=== PATIENT | male | born 1960 | race African-American/Black ===

== ENCOUNTER 2020-11-29 09:59 | Emergency (ER) | payer OTHER, SELFPAY ==
[~2020-11-29] VITALS: Ht 182.9 cm; Wt 99.8 kg
[2020-11-29 10:10] VITALS: BP_SYST 127
[2020-11-29] MEDS ORDERED: predniSONE 20 MG TABLET PO ONE (12:00)
[2020-11-29] MEDS ORDERED: IPRATROPIUM/ALBUTEROL SULFATE 3 ML AMPUL.NEB (DUONEB) INH ONE (12:15)
[2020-11-29] MEDS ORDERED: ALBUTEROL SULFATE 0.083% 2.5 MG/3 ML VIAL.NEB INH ONE ×2 (12:15→14:45)
[2020-11-29] MEDS ORDERED: ALBU8.5H8 INH (14:52)
[2020-11-29] MEDS ORDERED: PRED20TA PO (14:52)
[2020-11-29] MEDS ORDERED: AZIT-62 PO (14:52)
[2020-11-29 15:12] VITALS: BP_SYST 127
== END 2020-11-29 15:12 | disposition home or self-care (01) ==
LOC: SED 09:59
DX: J18.0 Bronchopneumonia, unspecified organism (principal); J20.9 Acute bronchitis, unspecified; Z79.899 Other long term (current) drug therapy
CPT/HCPCS: 71045; 93005; 94640; 99284; J7512; J7613

== ENCOUNTER 2020-12-19 01:35 | Emergency (ER) | payer OTHER, SELFPAY ==
[~2020-12-19] VITALS: Ht 182.9 cm; Wt 98.4 kg
[~2020-12-19 01:35] MED LIST: ALBU8.5H8 INH; AZIT-62 PO; PRED20TA PO
--- NOTE | 2020-12-19 01:46 | NUR ---
Placed in room 8 . Placed on air sampling and monitoring, blood pressure machine and pulse oximeter. To gown for exam. Side rails up.
[2020-12-19 01:48] VITALS: BP_SYST 159
--- NOTE | 2020-12-19 01:51 | NUR ---
Pt came into ER with complaint of non productive dry cough [id number]. Pt reports pain with cough 5/10. Denies sore throat and denies chest pain. Pt reports SOB. Pt is AAOX4 speaking full sentences non febrile VSS resting in gurney attached to monitor. Lung sounds slight expiratory wheezing bilaterally. Breathing is even and unlabored.
--- NOTE | 2020-12-19 01:57 | NUR ---
ER at bedside examining patient.
--- NOTE | 2020-12-19 02:10 | NUR ---
Covid swab collected and sent to lab.
--- NOTE | 2020-12-19 02:10 | NUR ---
X-ray at bedside.
--- NOTE | 2020-12-19 03:14 | NUR ---
Blood collected and sent to lab.
--- NOTE | 2020-12-19 03:14 | NUR ---
# 20 gauge angiocath placed to LAC. Use of asceptic technique. Opsite placed over site. Blood return noted. Blood for lab drawn from site. Flushed with 10 cc of normal saline. No evidence of infiltration noted. Patient tolerated well.
[2020-12-19] MEDS ORDERED: MAGNESIUM SULFATE 50 ML IV ONE (03:15)
[2020-12-19] MEDS ORDERED: MAGNESIUM SULFATE 1 GM/2 ML VIAL IVP ONE (03:15)
[2020-12-19] MEDS ORDERED: DEXAMETHASONE SOD PHOSPHATE 10 MG/ML VIAL IVP ONE (03:15)
--- NOTE | 2020-12-19 03:30 | NUR ---
Care endorsed to Stu ROUSE.
[2020-12-19 03:46] LABS: BASOPHILS % (AUTO) 0.5 % (0.0-2.0); EOSINOPHILS # (AUTO) 1.2 K/uL (0.0-0.4); HEMATOCRIT 39.4 % (36-54); HEMOGLOBIN 12.9 g/dL (14.0-18.0); LYMPHOCYTES % (AUTO) 25.9 % (20.5-51.5); MEAN CORPUSCULAR HEMOGLOBIN 27 pg (27-31); MEAN CORPUSCULAR HGB CONC 33 % (32-36); MEAN CORPUSCULAR VOLUME 83 fL (79.0-98.0); MONOCYTES # (AUTO) 0.5 K/uL (0.0-1.0); MONOCYTES % (AUTO) 6.3 % (1.7-9.3); NEUTROPHILS # (AUTO) 3.9 K/uL (1.8-7.7); NEUTROPHILS % (AUTO) 51.3 % (40.0-70.0); PLATELET COUNT (AUTO) 264 K/uL (130-430); RED BLOOD CELL COUNT(AUTO) 4.76 MIL/uL (4.2-6.2); RED CELL DISTRIBUTION WIDTH 14.9 % (9.0-15.0); WHITE BLOOD COUNT (AUTO) 7.6 K/uL (4.8-10.8)
[2020-12-19 03:57] LABS: CALCIUM 8.5 mg/dL (8.4-11.0); CREATININE 0.99 mg/dL (0.55-1.30); POTASSIUM 3.7 mmol/L (3.5-5.1)
[2020-12-19] MEDS ORDERED: PRED20TA PO (04:44)
[2020-12-19] MEDS ORDERED: LORA10TA7 PO (04:44)
[2020-12-19] MEDS ORDERED: PROM5SYR PO (04:44)
[2020-12-19 04:47] LABS: ERYTHROCYTE SEDIMENTATION RATE 9 MM/HR (0-15)
[2020-12-19] MEDS ORDERED: ALBMDI INH (04:48)
[2020-12-19 04:55] VITALS: BP_SYST 132
--- NOTE | 2020-12-19 04:55 | NUR ---
Patient given written and verbal discharge instructions and verbalizes understanding. ER MD discussed with patient the results and treatment provided. Patient in stable condition. ID arm band removed. IV catheter removed intact and dressing applied, no active bleeding. Rx of Albuterol, Claritin, Prednisone, Promethazine w/ Codeine given. Patient educated on pain management and to follow up with PMD. Pain Scale 0/10 Opportunity for questions provided and answered. Medication side effect fact sheet provided.
== END 2020-12-19 04:55 | disposition home or self-care (01) ==
LOC: SED 01:35
DX: J18.9 Pneumonia, unspecified organism (principal); F12.90 Cannabis use, unspecified, uncomplicated; Z79.899 Other long term (current) drug therapy; Z20.822 Contact with and (suspected) exposure to COVID-19
CPT/HCPCS: 36415; 71045; 80048; 83880; 85025; 85651; 87426; 96365; 96375; 99284; J1100; J3475

== ENCOUNTER 2022-12-27 18:02 | Emergency (ER) | payer MEDICAID, OTHER ==
[~2022-12-27] VITALS: Ht 182.9 cm; Wt 106.6 kg
[~2022-12-27 18:02] MED LIST changes: +ALBMDI INH; -AZIT-62 PO; +AZIT-93 PO; +LORA10TA7 PO; +PROM5SYR PO
[2022-12-27 18:05] VITALS: BP_SYST 140; PULSE 86; RESP 18; TEMP 98.3; O2SAT 96
[2022-12-27 18:53] LABS: COVID19 ANTIGEN SOFIA FIA NEGATIVE (NEGATIVE)
[2022-12-27 19:03] LABS: INFLUENZA TYPE A Negative (NEGATIVE); INFLUENZA TYPE B NEGATIVE (NEGATIVE)
[2022-12-27] MEDS ORDERED: guaiFENesin/DEXTROMETHORPHAN 10 ML UDC PO ONE (19:45)
[2022-12-27] MEDS ORDERED: IBUPROFEN 800 MG TABLET PO ONE (19:45)
[2022-12-27] MEDS ORDERED: IPRATROPIUM/ALBUTEROL SULFATE 3 ML AMPUL.NEB (DUONEB) INH ONE (19:45)
[2022-12-27] MEDS ORDERED: IBUP-1969 PO (19:46)
[2022-12-27] MEDS ORDERED: BENZ100C92 PO (19:46)
[2022-12-27] MEDS ORDERED: ZIT250 PO (19:46)
[2022-12-27] MEDS ORDERED: ALBMDI INH (19:46)
[2022-12-27] MEDS ORDERED: LevALBUTEROL HCL 1.25 MG/0.5 ML *CONC.* VIAL.NEB (XOPENEX CONC.) INH ONE (20:00)
[2022-12-27 20:21] VITALS: O2SAT 97
== END 2022-12-27 20:41 | disposition home or self-care (01) ==
LOC: SED 18:02
DX: J40 Bronchitis, not specified as acute or chronic (principal); J06.9 Acute upper respiratory infection, unspecified; R05.9 Cough, unspecified; R09.81 Nasal congestion; Z79.899 Other long term (current) drug therapy; Z20.822 Contact with and (suspected) exposure to COVID-19
CPT/HCPCS: 36415; 71045; 94640; 99284; 87804 ×2; 87426; J7612

== ENCOUNTER 2023-01-03 17:17 | Emergency (ER) | payer MEDICAID ==
[~2023-01-03] VITALS: Ht 182.9 cm; Wt 106.6 kg
[~2023-01-03 17:17] MED LIST changes: +BENZ100C92 PO; +IBUP-1969 PO; +ZIT250 PO
[2023-01-03 17:20] VITALS: BP_SYST 142; PULSE 75; RESP 19; TEMP 97.4; O2SAT 96
[2023-01-03] MEDS ORDERED: IPRATROPIUM/ALBUTEROL SULFATE 3 ML AMPUL.NEB (DUONEB) INH ONE (18:45)
[2023-01-03 19:06] LABS: BASOPHILS # (AUTO) 0.1 K/uL (0.0-0.2); BASOPHILS % (AUTO) 0.6 % (0.0-2.0); EOSINOPHILS # (AUTO) 1.1 K/uL (0.0-0.4); EOSINOPHILS % (AUTO) 9.4 % (0.0-4.0); HEMATOCRIT 41.8 % (36-54); HEMOGLOBIN 13.5 g/dL (14.0-18.0); LYMPHOCYTES # (AUTO) 3.2 K/uL (1.0-5.5); LYMPHOCYTES % (AUTO) 28.6 % (20.5-51.5); MEAN CORPUSCULAR HEMOGLOBIN 27 pg (27-31); MEAN CORPUSCULAR HGB CONC 32 % (32-36); MEAN CORPUSCULAR VOLUME 83 fL (79.0-98.0); MONOCYTES # (AUTO) 0.6 K/uL (0.0-1.0); MONOCYTES % (AUTO) 5.1 % (1.7-9.3); NEUTROPHILS # (AUTO) 6.4 K/uL (1.8-7.7); NEUTROPHILS % (AUTO) 56.3 % (40.0-70.0); PLATELET COUNT (AUTO) 292 K/uL (130-430); RED BLOOD CELL COUNT(AUTO) 5.05 MIL/uL (4.2-6.2); RED CELL DISTRIBUTION WIDTH 14.7 % (9.0-15.0); WHITE BLOOD COUNT (AUTO) 11.3 K/uL (4.8-10.8)
[2023-01-03 19:33] LABS: ANION GAP 9 (5-15); CALCIUM 9.5 mg/dL (8.4-11.0); CARBON DIOXIDE 28 mmol/L (23-29); CHLORIDE 105 mmol/L (98-107); CREATININE 1.15 mg/dL (0.55-1.30); GFR AFRICAN AMERICAN 83 mL/min (>90); GLUCOSE 110 mg/dL (74-106); POTASSIUM 4.3 mmol/L (3.5-5.1); SODIUM SERUM 142 mmol/L (136-145); UREA NITROGEN, BLOOD 10 mg/dL (8-21)
[2023-01-03 19:36] LABS: GFR NON AFRICAN-AMERICAN 69 mL/min (>90)
[2023-01-03] MEDS ORDERED: AMOX-423 PO (21:36)
[2023-01-03 22:09] LABS: INFLUENZA TYPE A Negative (NEGATIVE); INFLUENZA TYPE B NEGATIVE (NEGATIVE)
[2023-01-03 22:26] VITALS: BP_SYST 110; PULSE 76; RESP 20; TEMP 98.5; O2SAT 100
== END 2023-01-03 22:25 | disposition home or self-care (01) ==
LOC: SED 17:17
DX: J45.909 Unspecified asthma, uncomplicated (principal); R06.02 Shortness of breath; R05.9 Cough, unspecified; R42 Dizziness and giddiness; Z79.899 Other long term (current) drug therapy; Z20.822 Contact with and (suspected) exposure to COVID-19
CPT/HCPCS: 36415; 71045; 80048; 83880; 84484; 85025; 85379; 93005; 94640; 99285